=== PATIENT | female | born 1995 | race Two or more races ===

== ENCOUNTER 2023-10-20 19:16 | Emergency (ER) | payer OTHER ==
[~2023-10-20] VITALS: Ht 165.1 cm; Wt 77.1 kg
== END 2023-10-20 23:12 | disposition home or self-care (01) ==
LOC: ER 19:17
DX: I25.10 Atherosclerotic heart disease of native coronary artery without angina pectoris (principal); M94.0 Chondrocostal junction syndrome [Tietze]; F41.9 Anxiety disorder, unspecified; Z88.6 Allergy status to analgesic agent; E03.9 Hypothyroidism, unspecified